=== PATIENT | male | born 1985 | race Caucasian/White ===

== ENCOUNTER → 2023-04-22 | Outpatient (CLI) | payer BC ==
[2023-04-22 10:04] LABS: BASO # 0.02 K/mm3 (0.02-0.10); EOS # 0.04 K/mm3 (0.04-0.40); EOS % 0.9 % (0.0-4.0); HEMATOCRIT 44.3 % (42.0-52.0); HEMOGLOBIN 15.1 g/dL (13.5-18.0); LYMPH# 1.22 K/mm3 (1.50-4.00); MEAN CELL VOLUME 89 fl (78-100); MEAN CORPUSCULAR HEMOGLOBIN 30 pg (27-31); MEAN CORPUSCULAR HGB CONC 34 g/dL (33-37); MEAN PLATELET VOLUME 9.4 fl (7.4-10.4); MONO # 0.41 K/mm3 (0.20-0.80); NEU # 2.64 K/mm3 (1.40-6.50); PLATELET COUNT 184 K/mm3 (130-400); RED BLOOD COUNT 4.99 M/mm3 (4.20-5.60); RED CELL DISTRIBUTION WIDTH 12.4 % (11.5-14.5); WHITE BLOOD COUNT 4.3 K/mm3 (4.8-10.8)
[2023-04-22 10:13] LABS: ALBUMIN 4.5 g/dL (3.5-5.0)
[2023-04-22 10:14] LABS: CALCIUM 9.5 mg/dL (8.3-10.5)
[2023-04-22 10:16] LABS: TOTAL PROTEIN 7.8 g/dL (6.4-8.3)
[2023-04-22 10:17] LABS: TOTAL BILIRUBIN 0.5 mg/dL (0.2-1.2)
[2023-04-22 11:11] LABS: ERYTHROCYTE SEDIMENTATION RATE 2 mm/hr (0-15)
== END ==
LOC: LAB 09:51
PROVIDERS: Nurse Practitioner
DX: Z00.00 Encounter for general adult medical examination without abnormal findings (principal); E78.5 Hyperlipidemia, unspecified; H46.9 Unspecified optic neuritis

== ENCOUNTER → 2023-04-30 | Outpatient (CLI) | payer BC | LOC: RAD 13:50 | DX: H46.9 Unspecified optic neuritis (principal); R90.82 White matter disease, unspecified | CPT/HCPCS: A9575 ==